=== PATIENT | female | born 1995 | race Caucasian/White ===

== ENCOUNTER 2016-09-14 13:49 | Emergency (ER) | payer SELFPAY ==
[2016-09-14] MEDS ORDERED: Ketorolac 30 MG/ML SDV IVPUSH ONE (14:07)
[2016-09-14] MEDS ORDERED: Ondansetron 4 MG/2 ML SDV IVPUSH ONE (14:07)
[2016-09-14] MEDS ORDERED: Sodium Chloride 0.9% 1,000 ML IV ONE (14:07)
--- NOTE | 2016-09-14 14:08 | EDM.PDOC ---
ED HPI GENERAL MEDICAL PROBLEM - General Chief Complaint: Headache Stated Complaint: MIGRAINE Time Seen by Provider: 09/14/16 14:08 Source of Information: Reports: Patient - History of Present Illness INITIAL COMMENTS - FREE TEXT/NARRATIVE: HISTORY AND PHYSICAL: History of present illness: []Patient presents with 5 out of 10 right unilateral headache she has a history of migraine she's had symptoms for 2 days she has no further nausea or light sensitivity but continues to have the right unilateral pain She's had headaches for 10 years off and on generally controlled with over-the- counter medications she is not had a head CT in the past No fever nausea vomiting chills sweats Review of systems: As per history of present illness and below otherwise all systems reviewed and negative. Past medical history: As per history of present illness and as reviewed below otherwise noncontributory. Surgical history: As per history of present illness and as reviewed below otherwise noncontributory. Social history: No reported history of drug or alcohol abuse. Family history: As per history of present illness and as reviewed below otherwise noncontributory. Physical exam: HEENT: Atraumatic, normocephalic, pupils reactive, negative for conjunctival pallor or scleral icterus, mucous membranes moist, throat clear, neck supple, nontender, trachea midline. No meningeal sign Lungs: Clear to auscultation, breath sounds equal bilaterally, chest nontender. Heart: S1S2, regular, negative for clicks, rubs, or JVD. Abdomen: Soft, nondistended, nontender. Negative for masses or hepatosplenomegaly. Negative for costovertebral tenderness. Pelvis: Stable nontender. Genitourinary: Deferred. Rectal: Deferred. Extremities: Atraumatic, negative for cords or calf pain. Neurovascular unremarkable. Neuro: Awake, alert, oriented. Cranial nerves II through XII unremarkable. Cerebellum unremarkable. Motor and sensory unremarkable throughout. Exam nonfocal. Diagnostics: []Lab as below Head CT no contrast Therapeutics: []1 L normal saline bolus Toradol 30 mg IV Zofran 8 mg IV Fioricet, no driving on medication Impression: []Migraine-improved Definitive disposition and diagnosis as appropriate pending reevaluation and review of above. Headache Pain Score (Numeric/FACES): 10 - Related Data Allergies Allergy/AdvReac Type Severity Reaction Status Date / Time No Known Allergies Allergy Verified 09/14/16 14:04 Home Meds: Home Meds . [No Known Home Meds] 09/14/16 [History] Past Medical History HEENT History: Reports: None Musculoskeletal History: Reports: None - Past Surgical History Other HEENT Surgeries/Procedures: left eardrum reconstruction Other Musculoskeletal Surgeries/Procedures:: cyst right wrist removed Social & Family History - Family History Family Medical History: Noncontributory - Tobacco Use Smoking Status *Q: Never Smoker Second Hand Smoke Exposure: No - Caffeine Use Caffeine Use: Reports: Coffee Caffeine Use Comment: "seldom" - Recreational Drug Use Recreational Drug Use: No ED ROS GENERAL - Review of Systems Review Of Systems: ROS reveals no pertinent complaints other than HPI. ED EXAM, GENERAL - Physical Exam Exam: See Below Course - Vital Signs Last Recorded V/S: Last Vital Signs Temp 36.4 C 09/14/16 15:43 Pulse 72 09/14/16 15:43 Resp 16 09/14/16 15:43 BP 89/53 L 09/14/16 15:43 Pulse Ox 99 09/14/16 15:43 - Orders/Labs/Meds Orders: Active Orders 24 hr Category Date Time Status Head wo Cont [CT] Stat Exams 09/14/16 15:18 Taken Labs: Laboratory Tests 09/14/16 Range/Units 15:08 Urine HCG, Qual NEGATIVE (NEGATIVE) Meds: Medications Discontinued Medications Generic Name Dose Route Start Last Admin Trade Name Matheus PRN Reason Stop Dose Admin Sodium Chloride 1,000 mls @ 999 mls/hr 09/14/16 14:07 09/14/16 14:20 Normal Saline IV 09/14/16 15:07 999 mls/hr STAT ONE Administration Ketorolac Tromethamine 30 mg 09/14/16 14:07 09/14/16 15:19 Toradol IVPUSH 09/14/16 14:08 30 mg ONETIME ONE Administration Ondansetron HCl 8 mg 09/14/16 14:07 09/14/16 14:20 Zofran IVPUSH 09/14/16 14:08 8 mg ONETIME ONE Administration Departure - Departure Time of Disposition: 15:59 Disposition: Home, Self-Care 01 Condition: Good Clinical Impression: Migraine - Discharge Information Forms: ED Department Discharge Additional Instructions: Medication as prescribed Return if symptoms persist or worsen Follow-up with primary care in 2 weeks sooner as needed The following information is given to patients seen in the emergency department who are being discharged to home. This information is to outline your options for follow-up care. We provide all patients seen in our emergency department with a follow-up referral. The need for follow-up, as well as the timing and circumstances, are variable depending upon the specifics of your emergency department visit. If you don't have a primary care physician on staff, we will provide you with a referral. We always advise you to contact your personal physician following an emergency department visit to inform them of the circumstance of the visit and for follow-up with them and/or the need for any referrals to a consulting specialist. The emergency department will also refer you to a specialist when appropriate. This referral assures that you have the opportunity for follow-up care with a specialist. All of these measure are taken in an effort to provide you with optimal care, which includes your follow-up. Under all circumstances we always encourage you to contact your private physician who remains a resource for coordinating your care. When calling for follow-up care, please make the office aware that this follow-up is from your recent emergency room visit. If for any reason you are refused follow-up, please contact the [facility] emergency department at and asked to speak to the emergency department charge nurse. - My Orders Last 24 Hours: My Active Orders 09/14/16 15:18 Head wo Cont [CT] Stat - Assessment/Plan Last 24 Hours: My Active Orders 09/14/16 15:18 Head wo Cont [CT] Stat
[2016-09-14 15:44] VITALS: BP 89/53
--- NOTE | 2016-09-16 14:54 | CT ---
EXAM DATE: 09/14/16 PATIENT'S AGE: 20 Patient: ASIF MARQUEZ Facility: [place], [place] Site . Site : 1995 Study: CT Head [id number]/1/2017 3:35:19 PM Ordering Physician: Paul Medina Final Report: INDICATION: Headache; nausea. Comparison: None. Technique: CT head without intravenous contrast; coronal and sagittal reformats. Findings: No evidence of intracranial hemorrhage. No mass lesions. No evidence of shift of the midline structures. The calvarium is unremarkable. The ventricular system , this subarachnoid cisterns and the cerebral sulci are unremarkable. Impression: Negative unenhanced head CT. Please note that all CT scans at this facility use dose modulation, iterative reconstruction, and/or weight-based dosing when appropriate to reduce radiation dose to as low as reasonably achievable. Dictated by Jina Lorenz MD @ Sep 14 2016 3:49PM (Electronic Signature) Report Signed by Proxy. [facility]
== END 2016-09-14 16:09 | disposition home or self-care (01) ==
LOC: MW.ED 13:49
DX: G43.909 Migraine, unspecified, not intractable, without status migrainosus (principal)
CPT/HCPCS: 70450; 81025; 96361; 96374; 96375; 99284; J1885; J2405; J7040; 99282

== ENCOUNTER 2016-12-03 18:02 | Emergency (ER) | payer OTHER ==
[2016-12-03] MEDS ORDERED: Ketorolac 60 MG/2 ML SDV IM ONE (18:56)
--- NOTE | 2016-12-03 18:56 | EDM.PDOC ---
ED HPI GENERAL MEDICAL PROBLEM - General Chief Complaint: Lower Extremity Injury/Pain Stated Complaint: PT HURT LT FOOT Time Seen by Provider: 12/03/16 18:46 Source of Information: Reports: Patient History Limitations: Reports: No Limitations - History of Present Illness INITIAL COMMENTS - FREE TEXT/NARRATIVE: HISTORY AND PHYSICAL: History of present illness: patient reports that she was cleaning a windshield she came down there is a large piece of hard mud that fell off of the truck and landed on the top of her left foot. This patient continued on with her shift the pain in her foot became increasingly bothersome specially with weightbearing. Patient states that the foot is tender to touch and she bears weight the pain radiates from the anterior foot up to the ankle and [place]. Denies any previous injury to the affected extremity Review of systems: As per history of present illness and below otherwise all systems reviewed and negative. Past medical history: As per history of present illness and as reviewed below otherwise noncontributory. Surgical history: As per history of present illness and as reviewed below otherwise noncontributory. Social history: No reported history of drug or alcohol abuse. Family history: As per history of present illness and as reviewed below otherwise noncontributory. Physical exam: general: Nontoxic-appearing 21-year-old female. Able to speak in full sentences without shortness of breath. Alert and oriented HEENT: Atraumatic, normocephalic, pupils reactive, negative for conjunctival pallor or scleral icterus, mucous membranes moist, throat clear, neck supple, nontender, trachea midline. Lungs: Clear to auscultation, breath sounds equal bilaterally, chest nontender. Heart: S1S2, regular, negative for clicks, rubs, or JVD. Abdomen: Soft, nondistended, nontender. Negative for masses or hepatosplenomegaly. Negative for costovertebral tenderness. Pelvis: Stable nontender. Genitourinary: Deferred. Rectal: Deferred. Extremities: tenderness to palpation to the anterior left foot with mild erythema which is localized in the center (midfood - approx size of 50 cent piece), Neurovascular unremarkable. Neuro: Awake, alert, oriented. Cranial nerves II through XII unremarkable. Cerebellum unremarkable. Motor and sensory unremarkable throughout. Exam nonfocal. Diagnostics: x-ray left foot Therapeutics: Toradol IM, declined Impression: Foot injury, left Plan: 1. please use the Tony wrap and crutches as needed for comfort. May take Tylenol and/or ibuprofen [id number] as directed. Rest, ice, elevate the extremity several times per day over the next 2-3 days. 2. Please follow-up with her primary care provider in the next 1-2 days. return to ED as needed as discussed Definitive disposition and diagnosis as appropriate pending reevaluation and review of above. Onset: Today Onset Date: 12/03/16 Duration: Minutes: Location: Reports: Lower Extremity, Left Left Feet Pain Score (Numeric/FACES): 6 - Related Data Allergies Allergy/AdvReac Type Severity Reaction Status Date / Time No Known Allergies Allergy Verified 12/03/16 18:41 Home Meds: Home Meds . [No Known Home Meds] 09/14/16 [History] Past Medical History HEENT History: Reports: None Musculoskeletal History: Reports: None - Past Surgical History HEENT Surgical History: Reports: Tonsillectomy Other HEENT Surgeries/Procedures: left eardrum reconstruction Other Musculoskeletal Surgeries/Procedures:: cyst right wrist removed Social & Family History - Family History Family Medical History: Noncontributory - Tobacco Use Smoking Status *Q: Never Smoker Second Hand Smoke Exposure: No - Caffeine Use Caffeine Use: Reports: Soda Caffeine Use Comment: "occasionally" - Recreational Drug Use Recreational Drug Use: No Review of Systems - Review of Systems Review Of Systems: ROS reveals no pertinent complaints other than HPI. ED EXAM, GENERAL - Physical Exam Exam: See Below (see dictation) Course - Vital Signs Last Recorded V/S: Last Vital Signs Temp 36.4 C 12/03/16 18:38 Pulse 79 12/03/16 18:38 Resp 17 12/03/16 18:38 BP 110/67 12/03/16 18:38 Pulse Ox 99 12/03/16 18:38 - Orders/Labs/Meds Orders: Active Orders 24 hr Category Date Time Status Communication Order [RC] STAT Care 12/03/16 20:21 Ordered Foot Comp Min 3V Lt [CR] Stat Exams 12/03/16 18:50 Taken Meds: Medications Discontinued Medications Generic Name Dose Route Start Last Admin Trade Name Freq PRN Reason Stop Dose Admin Ketorolac Tromethamine 60 mg 12/03/16 18:56 09/19/17 19:07 Toradol IM 12/03/16 18:57 Not Given ONETIME ONE Departure - Departure Time of Disposition: 20:20 Disposition: Home, Self-Care 01 Condition: Good Clinical Impression: Foot injury Qualifiers: Encounter type: initial encounter Laterality: left Qualified Code(s): S99.922A - Unspecified injury of left foot, initial encounter - Discharge Information Referrals: PCP,None [Primary Care Provider] - Forms: ED Department Discharge Additional Instructions: My general discharge The following information is given to patients seen in the emergency department who are being discharged to home. This information is to outline your options for follow-up care. We provide all patients seen in our emergency department with a follow-up referral. The need for follow-up, as well as the timing and circumstances, are variable depending upon the specifics of your emergency department visit. If you don't have a primary care physician on staff, we will provide you with a referral. We always advise you to contact your personal physician following an emergency department visit to inform them of the circumstance of the visit and for follow-up with them and/or the need for any referrals to a consulting specialist. The emergency department will also refer you to a specialist when appropriate. This referral assures that you have the opportunity for follow-up care with a specialist. All of these measure are taken in an effort to provide you with optimal care, which includes your follow-up. Under all circumstances we always encourage you to contact your private physician who remains a resource for coordinating your care. When calling for follow-up care, please make the office aware that this follow-up is from your recent emergency room visit. If for any reason you are refused follow-up, please contact the [facility] Emergency Department at and asked to speak to the emergency department charge nurse. [facility] [address] [place] [id number] [facility] Professional Building [address] [place] [address], [address] [place] [address] 1. please use the Tony wrap and crutches as needed for comfort. May take Tylenol and/or ibuprofen [id number] as directed. Rest, ice, elevate the extremity several times per day over the next 2-3 days. 2. Please follow-up with her primary care provider or orthopedic provider in the next 1-2 days. ED as needed as discussed - My Orders Last 24 Hours: My Active Orders 12/03/16 18:50 Foot Comp Min 3V Lt [CR] Stat 12/03/16 20:21 Communication Order [RC] STAT - Assessment/Plan Last 24 Hours: My Active Orders 12/03/16 18:50 Foot Comp Min 3V Lt [CR] Stat 12/03/16 20:21 Communication Order [RC] STAT
[2016-12-03 23:00] VITALS: BP 111/60
--- NOTE | 2016-12-04 13:33 | CR ---
EXAM DATE: 12/03/16 PATIENT'S AGE: 21 Patient: ASIF MARQUEZ Facility: [place], [place] Site . Site : 1995 Study: XRay Extremity Left [id number]/19/2017 7:34:07 PM Ordering Physician: Doctor Padron Final Report: HISTORY: Crush injury. FINDINGS: Three views of the left foot demonstrates normal bone mineralization. There is normal alignment present. No fracture is identified. There is a lucency seen at the base of the proximal phalanx of the 4th toe on the oblique view only most likely a prominent trabecular marking. IMPRESSION: Lucency seen at the base of the proximal phalanx of the 4th toe on the oblique view only most likely and prominent trabecular markings. Recommend correlation with point tenderness at this site to completely exclude a nondisplaced fracture. Dictated by Eliza Medina MD @ 12/03/2016 8:23:27 PM Dictated by: Eliza Medina MD @ 12/03/2016 20:24:03 (Electronic Signature) Report Signed by Proxy. [facility]
== END 2016-12-03 20:36 | disposition home or self-care (01) ==
LOC: MW.ED 18:02
DX: S99.922A Unspecified injury of left foot, initial encounter (principal); Z98.890 Other specified postprocedural states; W20.8XXA Other cause of strike by thrown, projected or falling object, initial encounter; Y99.0 Civilian activity done for income or pay
CPT/HCPCS: 73630-26-LT; 73630-LT; 99283

== ENCOUNTER 2017-01-07 23:10 | Emergency (ER) | payer SELFPAY ==
[2017-01-07 23:30] VITALS: BP 114/60
--- NOTE | 2017-01-07 23:55 | EDM.PDOC ---
ED HPI GENERAL MEDICAL PROBLEM - General Chief Complaint: Chest Pain Stated Complaint: PT HAS CHEST PAINS Time Seen by Provider: 01/07/17 23:49 - History of Present Illness INITIAL COMMENTS - FREE TEXT/NARRATIVE: HISTORY AND PHYSICAL: History of present illness: Patient's 21-year-old white female presents with concern of chest pain 1 day this without associated shortness breath palpitations nausea vomiting or other complaints she denies trauma denies fever denies chills Review of systems: As per history of present illness and below otherwise all systems reviewed and negative. Past medical history: As per history of present illness and as reviewed below otherwise noncontributory. Surgical history: As per history of present illness and as reviewed below otherwise noncontributory. Social history: No reported history of drug or alcohol abuse. Family history: As per history of present illness and as reviewed below otherwise noncontributory. Physical exam: HEENT: Atraumatic, normocephalic, pupils reactive, negative for conjunctival pallor or scleral icterus, mucous membranes moist, throat clear, neck supple, nontender, trachea midline. Lungs: Clear to auscultation, breath sounds equal bilaterally, chest nontender. Heart: S1S2, regular, negative for clicks, rubs, or JVD. Abdomen: Soft, nondistended, nontender. Negative for masses or hepatosplenomegaly. Negative for costovertebral tenderness. Pelvis: Stable nontender. Genitourinary: Deferred. Rectal: Deferred. Extremities: Atraumatic, negative for cords or calf pain. Neurovascular unremarkable. Neuro: Awake, alert, oriented. Cranial nerves II through XII unremarkable. Cerebellum unremarkable. Motor and sensory unremarkable throughout. Exam nonfocal. Diagnostics: Chest x-ray EKG Therapeutics: None Impression: #1 atypical chest pain Definitive disposition and diagnosis as appropriate pending reevaluation and review of above. Middle Chest Pain Score (Numeric/FACES): 6 - Related Data Allergies Allergy/AdvReac Type Severity Reaction Status Date / Time No Known Allergies Allergy Verified 01/07/17 23:18 Home Meds: Home Meds . [No Known Home Meds] 09/14/16 [History] Past Medical History - Past Health History Medical/Surgical History: Denies Medical/Surgical History HEENT History: Reports: None Cardiovascular History: Reports: Angina Musculoskeletal History: Reports: None Psychiatric History: Reports: ADHD, Anxiety, Bipolar - Past Surgical History HEENT Surgical History: Reports: Tonsillectomy Other HEENT Surgeries/Procedures: left eardrum reconstruction Cardiovascular Surgical History: Reports: None Other Musculoskeletal Surgeries/Procedures:: cyst right wrist removed Social & Family History - Family History Family Medical History: Noncontributory - Tobacco Use Smoking Status *Q: Never Smoker Second Hand Smoke Exposure: No - Caffeine Use Caffeine Use: Reports: Soda Caffeine Use Comment: 2drinks/day - Recreational Drug Use Recreational Drug Use: No ED ROS GENERAL - Review of Systems Review Of Systems: ROS reveals no pertinent complaints other than HPI. ED EXAM, GENERAL - Physical Exam Exam: See Below (See dictation) Course - Vital Signs Last Recorded V/S: Last Vital Signs Temp 37.0 C 01/07/17 23:14 Pulse 83 01/07/17 23:14 Resp 17 01/07/17 23:14 BP 114/60 01/07/17 23:14 Pulse Ox 98 01/07/17 23:14 - Orders/Labs/Meds Orders: Active Orders 24 hr Category Date Time Status EKG 12 Lead [EKG Documentation Completion] [RC] STAT Care 01/07/17 23:09 Active Chest 1V Frontal [CR] Stat Exams 01/07/17 23:21 Ordered Departure - Departure Time of Disposition: 23:52 Disposition: Home, Self-Care 01 Condition: Good Clinical Impression: Atypical chest pain - Discharge Information Referrals: PCP,None [Primary Care Provider] - Additional Instructions: The following information is given to patients seen in the emergency department who are being discharged to home. This information is to outline your options for follow-up care. We provide all patients seen in our emergency department with a follow-up referral. The need for follow-up, as well as the timing and circumstances, are variable depending upon the specifics of your emergency department visit. If you don't have a primary care physician on staff, we will provide you with a referral. We always advise you to contact your personal physician following an emergency department visit to inform them of the circumstance of the visit and for follow-up with them and/or the need for any referrals to a consulting specialist. The emergency department will also refer you to a specialist when appropriate. This referral assures that you have the opportunity for followup care with a specialist. All of these measure are taken in an effort to provide you with optimal care, which includes your followup. Under all circumstances we always encourage you to contact your private physician who remains a resource for coordinating your care. When calling for followup care, please make the office aware that this follow-up is from your recent emergency room visit. If for any reason you are refused follow-up, please contact the [facility] emergency department at and asked to speak to the emergency department charge nurse. [facility] [address] [place] [id number] Follow-up primary medical doctor and/or clinic about 1-2 days return as needed as discussed - My Orders Last 24 Hours: My Active Orders 01/07/17 23:09 EKG 12 Lead [EKG Documentation Completion] [RC] STAT 01/07/17 23:21 Chest 1V Frontal [CR] Stat - Assessment/Plan Last 24 Hours: My Active Orders 01/07/17 23:09 EKG 12 Lead [EKG Documentation Completion] [RC] STAT 01/07/17 23:21 Chest 1V Frontal [CR] Stat
--- NOTE | 2017-01-08 11:45 | CR ---
EXAM DATE: 01/07/17 PATIENT'S AGE: 21 Patient: ASIF MARQUEZ Facility: [place], [place] Site . Site : 1995 Study: XRay Chest [id number]/24/2017 11:57:22 PM Ordering Physician: Doctor Padron Final Report: INDICATION: Chest pain TECHNIQUE: Chest radiograph 1 view COMPARISON: None FINDINGS: Cardiovascular and mediastinum: The cardiac silhouette is normal in appearance and size. Mediastinum is within normal limits. Lungs and pleural spaces: Both lungs are unremarkable in appearance. A tiny granuloma is noted in the left apex. No sign of pleural effusion. No pneumothorax is seen. Bones and soft tissues: No significant findings. IMPRESSION: 1. No acute cardiopulmonary disease seen. Dictated by: Reynaldo Alonso MD @ 01/08/2017 00:00:48 (Electronic Signature) Report Signed by Proxy. [facility]
== END 2017-01-08 01:16 | disposition home or self-care (01) ==
LOC: MW.ED 23:10
DX: R07.89 Other chest pain (principal)
CPT/HCPCS: 71010; 71010-26; 93005; 99281; 99285-25

== ENCOUNTER 2017-01-21 11:25 | Emergency (ER) | payer SELFPAY ==
[2017-01-21] MEDS ORDERED: Sodium Chloride 0.9% 2.5 ML Syringe FLUSH PRN (12:01)
[2017-01-21] MEDS ORDERED: Sodium Chloride 0.9% 10 ML Syringe FLUSH PRN (12:01)
[2017-01-21] MEDS ORDERED: Sodium Chloride 0.9% 1,000 ML IV ONE (12:01)
--- NOTE | 2017-01-21 12:07 | EDM.PDOC ---
ED HPI GENERAL MEDICAL PROBLEM - General Chief Complaint: Abdominal Pain Stated Complaint: ABDOMINAL PAIN Time Seen by Provider: 01/21/17 11:46 - History of Present Illness INITIAL COMMENTS - FREE TEXT/NARRATIVE: HISTORY AND PHYSICAL: History of present illness: The patient is a 21-year-old female who presents with a one-week history of complaint of lower abdominal cramping which is bilateral and diffuse. Patient states that the pain started slowly and then grew and she said it felt more like a menstrual cramping but then seemed to intensify. She's been taking Tylenol for the pain and nothing stronger. Her last regular period was the beginning of December and she says she is doing now but has not started. She does every . She denies any respiratory STDs and has no vaginal discharge. She has had no fevers chills flank pain dysuria frequency vomiting or diarrhea with this pain. Pain does not radiate and does not localize to one side or the other. She has no upper abdominal pain. And no back pain. She has no upper respiratory symptoms and she has been eating and drinking normally. Patient says she has had issues with constipation the past but has been having normal bowel movements recently. Bowel movements are not black or bloody. She has had no recent travel Review of systems: As per history of present illness and below otherwise all systems reviewed and negative. Past medical history: As per history of present illness and as reviewed below otherwise noncontributory. Surgical history: As per history of present illness and as reviewed below otherwise noncontributory. Social history: No reported history of drug or alcohol abuse. Family history: As per history of present illness and as reviewed below otherwise noncontributory. Physical exam: Gen.: Well-developed well-nourished female who is nontoxic and moves easily in the ED without distress HEENT: Atraumatic, normocephalic, negative for conjunctival pallor or scleral icterus, mucous membranes moist, throat clear, neck supple, nontender, trachea midline. Lungs: Clear to auscultation, breath sounds equal bilaterally, chest nontender. Heart: S1S2, regular rate and rhythm no overt murmurs Abdomen: Soft, nondistended, very minimal tenderness on deep palpation in the lower abdomen without localization right or left. There is mild tenderness suprapubically but no rebound no guarding and there is some tympany on percussion. Bowel sounds are hypoactive Negative for masses or hepatosplenomegaly. Negative for costovertebral tenderness. Pelvis: Stable nontender. Genitourinary: Deferred. Rectal: Deferred. Extremities: Atraumatic, negative for cords or calf pain. Neurovascular unremarkable. Neuro: Awake, alert, oriented. Cranial nerves II through XII unremarkable. Cerebellum unremarkable. Motor and sensory unremarkable throughout. Exam nonfocal. Diagnostics: UA UCG CBC CMP amylase lipase Therapeutics: IV fluids Toradol Impression: Lower abdominal pain UTI Definitive disposition and diagnosis as appropriate pending reevaluation and review of above. Lower abdominal Pain Pain Score (Numeric/FACES): 6 - Related Data Allergies Allergy/AdvReac Type Severity Reaction Status Date / Time No Known Allergies Allergy Verified 01/21/17 11:47 Home Meds: Home Meds . [No Known Home Meds] 09/14/16 [History] Past Medical History - Past Health History Medical/Surgical History: Denies Medical/Surgical History HEENT History: Reports: None Cardiovascular History: Reports: Angina, Other (See Below) Other Cardiovascular History: "inflammation in chest" Musculoskeletal History: Reports: None Psychiatric History: Reports: ADHD, Anxiety, Bipolar - Past Surgical History HEENT Surgical History: Reports: Tonsillectomy Other HEENT Surgeries/Procedures: left eardrum reconstruction Cardiovascular Surgical History: Reports: None Musculoskeletal Surgical History: Reports: Other (See Below) Other Musculoskeletal Surgeries/Procedures:: cyst right wrist removed Social & Family History - Family History Family Medical History: Noncontributory - Tobacco Use Smoking Status *Q: Never Smoker Second Hand Smoke Exposure: Yes - Caffeine Use Caffeine Use: Reports: Soda Caffeine Use Comment: "occasionally" - Recreational Drug Use Recreational Drug Use: No ED ROS GENERAL - Review of Systems Review Of Systems: ROS reveals no pertinent complaints other than HPI. ED EXAM, GENERAL - Physical Exam Exam: See Below (See dictation) Course - Vital Signs Last Recorded V/S: Last Vital Signs Temp 36.7 C 01/21/17 11:47 Pulse 80 01/21/17 11:47 Resp 16 01/21/17 11:47 BP 109/52 L 01/21/17 11:47 Pulse Ox 98 01/21/17 11:47 - Orders/Labs/Meds Orders: Active Orders 24 hr Category Date Time Status Ketorolac [Toradol] Med 01/21/17 13:08 Once 30 mg IVPUSH ONETIME ONE Sodium Chloride 0.9% [Saline Flush] Med 01/21/17 12:01 Active 10 ml FLUSH ASDIRECTED PRN Sodium Chloride 0.9% [Saline Flush] Med 01/21/17 12:01 Active 2.5 ml FLUSH ASDIRECTED PRN Saline Lock Insert [OM.PC] Stat Oth 01/21/17 11:58 Ordered Medication Orders Sodium Chloride (Saline Flush) 10 ml FLUSH ASDIRECTED PRN PRN Reason: Keep Vein Open Last Admin: 01/21/17 12:26 Dose: 10 ml Sodium Chloride (Saline Flush) 2.5 ml FLUSH ASDIRECTED PRN PRN Reason: Keep Vein Open Last Admin: 01/21/17 12:26 Dose: 2.5 ml Labs: Laboratory Tests 01/21/17 01/21/17 01/21/17 Range/Units 12:30 12:30 12:30 WBC 6.42 (4.0-11.0) K/uL RBC 5.34 (4.30-5.90) M/uL Hgb 15.3 (12.0-16.0) g/dL Hct 45.6 (36.0-46.0) % MCV 85.4 (80.0-98.0) fL MCH 28.7 (27.0-32.0) pg MCHC 33.6 (31.0-37.0) g/dL RDW Std Deviation 42.8 (28.0-62.0) fl RDW Coeff of Mamadou 14 (11.0-15.0) % Plt Count 305 (150-400) K/uL MPV 10.00 (7.40-12.00) fL Neut % (Auto) 62.8 (48.0-80.0) % Lymph % (Auto) 28.7 (16.0-40.0) % Woodson % (Auto) 6.4 (0.0-15.0) % Eos % (Auto) 1.6 (0.0-7.0) % Baso % (Auto) 0.5 (0.0-1.5) % Neut # (Auto) 4.0 (1.4-5.7) K/uL Lymph # (Auto) 1.8 (0.6-2.4) K/uL Woodson # (Auto) 0.4 (0.0-0.8) K/uL Eos # (Auto) 0.1 (0.0-0.7) K/uL Baso # (Auto) 0.0 (0.0-0.1) K/uL Nucleated RBC % 0.0 /100WBC Nucleated RBCs # 0 K/uL Sodium 141 (136-146) mmol/L Potassium 3.8 (3.5-5.1) mmol/L Chloride 108 (98-110) mmol/L Carbon Dioxide 24 (21-31) mmol/L BUN 8 (6.0-23.0) mg/dL Creatinine 0.7 (0.6-1.5) mg/dL Est Cr Clr Drug Dosing 91.32 mL/min Estimated GFR (MDRD) > 60.0 ml/min Glucose 92 (60-110) mg/dL Calcium 9.8 (8.8-10.8) mg/dL Total Bilirubin 0.5 (0.1-1.5) mg/dL AST 17 (5-40) IU/L ALT 19 (8-54) IU/L Alkaline Phosphatase 66 (40-150) Total Protein 7.5 (6.0-8.0) g/dL Albumin 4.5 (3.5-5.0) g/dL Globulin 3.0 (2.0-3.5) g/dL Albumin/Globulin Ratio 1.5 (1.3-2.8) Amylase 27 (10-90) U/L Lipase 13 (7-80) U/L Urine Color Urine Appearance Urine pH (5.0-8.0) Ur Specific [place] (1.001-1.035) Urine Protein (NEGATIVE) mg/dL Urine Glucose (UA) (NEGATIVE) mg/dL Urine Ketones (NEGATIVE) mg/dL Urine Occult Blood (NEGATIVE) Urine Nitrite (NEGATIVE) Urine Bilirubin (NEGATIVE) Urine Urobilinogen (<2.0) EU/dL Ur Leukocyte Esterase (NEGATIVE) Urine RBC (0-2/HPF) Urine WBC (0-5/HPF) Ur Epithelial Cells (NONE-FEW) Urine Bacteria (NEGATIVE) Urine HCG, Qual NEGATIVE (NEGATIVE) 01/21/17 Range/Units 12:30 WBC (4.0-11.0) K/uL RBC (4.30-5.90) M/uL Hgb (12.0-16.0) g/dL Hct (36.0-46.0) % MCV (80.0-98.0) fL MCH (27.0-32.0) pg MCHC (31.0-37.0) g/dL RDW Std Deviation (28.0-62.0) fl RDW Coeff of Mamadou (11.0-15.0) % Plt Count (150-400) K/uL MPV (7.40-12.00) fL Neut % (Auto) (48.0-80.0) % Lymph % (Auto) (16.0-40.0) % Woodson % (Auto) (0.0-15.0) % Eos % (Auto) (0.0-7.0) % Baso % (Auto) (0.0-1.5) % Neut # (Auto) (1.4-5.7) K/uL Lymph # (Auto) (0.6-2.4) K/uL Woodson # (Auto) (0.0-0.8) K/uL Eos # (Auto) (0.0-0.7) K/uL Baso # (Auto) (0.0-0.1) K/uL Nucleated RBC % /100WBC Nucleated RBCs # K/uL Sodium (136-146) mmol/L Potassium (3.5-5.1) mmol/L Chloride (98-110) mmol/L Carbon Dioxide (21-31) mmol/L BUN (6.0-23.0) mg/dL Creatinine (0.6-1.5) mg/dL Est Cr Clr Drug Dosing mL/min Estimated GFR (MDRD) ml/min Glucose (60-110) mg/dL Calcium (8.8-10.8) mg/dL Total Bilirubin (0.1-1.5) mg/dL AST (5-40) IU/L ALT (8-54) IU/L Alkaline Phosphatase (40-150) Total Protein (6.0-8.0) g/dL Albumin (3.5-5.0) g/dL Globulin (2.0-3.5) g/dL Albumin/Globulin Ratio (1.3-2.8) Amylase (10-90) U/L Lipase (7-80) U/L Urine Color YELLOW Urine Appearance SLT CLOUDY Urine pH 6.5 (5.0-8.0) Ur Specific [place] 1.010 (1.001-1.035) Urine Protein NEGATIVE (NEGATIVE) mg/dL Urine Glucose (UA) NEGATIVE (NEGATIVE) mg/dL Urine Ketones NEGATIVE (NEGATIVE) mg/dL Urine Occult Blood TRACE-INTACT (NEGATIVE) Urine Nitrite NEGATIVE (NEGATIVE) Urine Bilirubin NEGATIVE (NEGATIVE) Urine Urobilinogen 1.0 (<2.0) EU/dL Ur Leukocyte Esterase MODERATE (NEGATIVE) Urine RBC 0-1 (0-2/HPF) Urine WBC 35-40 (0-5/HPF) Ur Epithelial Cells OCCASIONAL (NONE-FEW) Urine Bacteria 2+ H (NEGATIVE) Urine HCG, Qual (NEGATIVE) Meds: Medications Generic Name Dose Route Start Last Admin Trade Name Freq PRN Reason Stop Dose Admin Sodium Chloride 10 ml 01/21/17 12:01 01/21/17 12:26 Saline Flush FLUSH 10 ml ASDIRECTED PRN Administration Keep Vein Open Sodium Chloride 2.5 ml 01/21/17 12:01 01/21/17 12:26 Saline Flush FLUSH 2.5 ml ASDIRECTED PRN Administration Keep Vein Open Discontinued Medications Generic Name Dose Route Start Last Admin Trade Name Freq PRN Reason Stop Dose Admin Sodium Chloride 1,000 mls @ 999 mls/hr 01/21/17 12:01 01/21/17 12:26 Normal Saline IV 01/21/17 13:01 999 mls/hr STAT ONE Administration Departure - Departure Time of Disposition: 13:09 Disposition: Home, Self-Care 01 Condition: Good Clinical Impression: Abdominal pain Qualifiers: Abdominal location: lower abdomen, unspecified Qualified Code(s): R10.30 - Lower abdominal pain, unspecified UTI (urinary tract infection) Qualifiers: Urinary tract infection type: site unspecified Hematuria presence: without hematuria Qualified Code(s): N39.0 - Urinary tract infection, site not specified - Discharge Information Referrals: PCP,None [Primary Care Provider] - Forms: ED Department Discharge Additional Instructions: The following information is given to patients seen in the emergency department who are being discharged to home. This information is to outline your options for follow-up care. We provide all patients seen in our emergency department with a follow-up referral. The need for follow-up, as well as the timing and circumstances, are variable depending upon the specifics of your emergency department visit. If you don't have a primary care physician on staff, we will provide you with a referral. We always advise you to contact your personal physician following an emergency department visit to inform them of the circumstance of the visit and for follow-up with them and/or the need for any referrals to a consulting specialist. The emergency department will also refer you to a specialist when appropriate. This referral assures that you have the opportunity for followup care with a specialist. All of these measure are taken in an effort to provide you with optimal care, which includes your followup. Under all circumstances we always encourage you to contact your private physician who remains a resource for coordinating your care. When calling for followup care, please make the office aware that this follow-up is from your recent emergency room visit. If for any reason you are refused follow-up, please contact the [facility] emergency department at and ask to speak to the emergency department charge nurse. [facility] Primary care- Internal [place] [address] Push hydration and takes antibiotics until they're finished. Use all medication as prescribed and return to ER as needed as discussed. Please call and follow- up in the clinic using resources given to above. - My Orders Last 24 Hours: My Active Orders 01/21/17 11:58 Saline Lock Insert [OM.PC] Stat 01/21/17 12:01 Sodium Chloride 0.9% [Saline Flush] 10 ml FLUSH ASDIRECTED PRN Sodium Chloride 0.9% [Saline Flush] 2.5 ml FLUSH ASDIRECTED PRN 01/21/17 13:08 Ketorolac [Toradol] 30 mg IVPUSH ONETIME ONE - Assessment/Plan Last 24 Hours: My Active Orders 01/21/17 11:58 Saline Lock Insert [OM.PC] Stat 01/21/17 12:01 Sodium Chloride 0.9% [Saline Flush] 10 ml FLUSH ASDIRECTED PRN Sodium Chloride 0.9% [Saline Flush] 2.5 ml FLUSH ASDIRECTED PRN 01/21/17 13:08 Ketorolac [Toradol] 30 mg IVPUSH ONETIME ONE
[2017-01-21 13:04] LABS: CHLORIDE,CL 108 mmol/L (98-110); SODIUM,NA 141 mmol/L (136-146)
[2017-01-21] MEDS ORDERED: Ketorolac 30 MG/ML SDV IVPUSH ONE (13:08)
[2017-01-21 13:28] VITALS: BP 106/64
== END 2017-01-21 13:36 | disposition home or self-care (01) ==
LOC: MW.ED 11:25
DX: N39.0 Urinary tract infection, site not specified (principal); Z77.22 Contact with and (suspected) exposure to environmental tobacco smoke (acute) (chronic)
CPT/HCPCS: 36415; 80053; 81001; 81025; 82150; 83690; 85025; 87086; 96361; 96374; 99284; J1885; J7040; 87088; 87186